=== PATIENT | male | born 1995 | race Caucasian/White ===

== ENCOUNTER 2022-04-03 22:10 | Emergency (ER) | payer OTHER, MEDICAID, SELFPAY ==
[2022-04-03 22:11] VITALS: BP 125/79; PULSE 61; RESP 16; TEMP 37.1; O2SAT 100; BMI 22.2
--- NOTE | 2022-04-03 23:06 | EDS_ITS ---
HPI HPI - GI History of Present Illness Chief Complaint: Abd Pain Narrative Narrative: 26-year-old male presenting with bilateral abdominal pain. He points to each flank. He states this has been ongoing for about 2 weeks. He reports he was initially constipated and gave himself an enema. He has been getting small amounts of stool periodically. He is not taking any stool softener or laxatives. Patient states he did have some nausea but is no longer experiencing this. He states he has been to 2 emergency room's over the last 2 weeks. He states that he initially had lab work-up the first time. Yesterday he reports having lab work and a CT scan of his abdomen which was normal. Patient has no history of inflammatory bowel disease. No history of abdominal surgeries. He reports no medical history. He states that his abdomen is always kind of sore because he rides dirt bikes. No urinary complaints. He feels as if there is fluid in his abdomen that moves when he sits up or lays down. PFSH PFSH Allergy/AdvReac Type Severity Reaction Status Date / Time No Known Allergies Allergy Verified 04/03/22 22:11 ROS ROS ED Constitutional Constitutional ED: Denies chills or fever(s) ENT ENT ED: Denies rhinorrhea or sore throat Cardiovascular Cardiovascular: Denies chest pain or palpitations Respiratory/Chest Respiratory/Chest: Denies cough or dyspnea Gastrointestinal Gastrointestinal: Reports abdominal pain, constipation and nausea Genitourinary Genitourinary ED: Denies dysuria or hematuria Musculoskeletal Musculoskeletal: Denies arthralgias or back pain Integumentary Denies abscess or Abrasions Neurologic Neurologic: Denies headache(s) or paresthesias Psychiatric Psychiatric: Denies anxiety or depression Endocrine Endocrinology: Denies polydipsia or polyphagia EXAM Physical Exam Const Vital Signs: 04/03/22 22:11 Temperature 98.8 F Temperature Source Temporal Pulse Rate 61 Respiratory Rate 16 Blood Pressure 125/79 H Blood Pressure Mean 94 Pulse Ox 100 Oxygen Delivery Method Room Air Positive well nourished General Appearance ED: NAD; Negative for pallor HEENT Reports moist mucous membranes normocephalic Eyes PERRL and EOMs intact bilaterally General Eye ED: Negative for pale conjunctiva or scleral icterus Resp normal respiratory effort and clear to auscultation bilaterally Auscultation: Negative for rales, rhonchi or wheezes Cardio regular rate and regular rhythm GI non-distended and no masses Palpation: soft; Negative for guarding, rigid, hepatomegaly, splenomegaly, mass or rebound tenderness present Back/Spine no CVA tenderness Extremity full ROM Neuro CN's II-XII intact bilaterally and moves all extremities Sensorium / Orientation: alert, oriented to person, oriented to place and oriented to time Motor Exam: strength 5/5 throughout Psych mental status grossly normal Skin no wounds General Skin Exam: Negative for jaundice or pallor MDM MDM MDM Narrative Medical decision making narrative: Patient presenting with pain for 2 weeks. He has had 2 ER evaluations prior to mine. His vital signs are normal. His abdominal exam is benign. I looked up his most recent visit yesterday in [facility] and I saw that he had a normal CT of the abdomen pelvis yesterday. The appendix was seen and was not abnormal. There is noes evidence of inflammatory bowel disease and no significant stool burden on the CT. His CBC, CMP, lipase were normal. His urinalysis was normal. I counseled him off all findings because the patient states he was not sure what they found. I do not believe he needs repeat blood work or imaging as he has had this pain for 2 weeks and has a normal evaluation yesterday and his physical exam is unremarkable. Patient was still concerned about his abdominal discomfort. I obtained an acute abdominal series which on my interpretation shows a nonspecific bowel gas pattern. There is no evidence of obstruction. No acute cardiopulmonary process. No free air. Given this I feel the patient is stable for discharge home. Since he has had ongoing GI complaints I will refer him to Dr. Bustos. Impression: 1. Abdominal pain Radiography Diagnostic Testing: Clinical Impression(s) from Imaging Studies Acute Abdomen Series 04/03/22 23:50 IMPRESSION: Normal x-ray examination of the chest, abdomen, and pelvis. Electronically Signed: Justo Wren MD at 0:04 EST Reading Location ID and State: [facility] / [place] Tel , Service support , Discharge Plan Triage Chief Complaint: Abd Pain ED Provider: Des Parada Dx/Rx/DC Orders Primary Care Provider: Care Physician,No Primary Referrals: NOT,DEFINED [Non-Staff] -
--- NOTE | 2022-04-03 23:50 | RAD_ITS ---
STUDY: X-RAY - ACUTE ABDOMINAL SERIES REASON FOR EXAM: Male, 26 years old. abdominal pain TECHNIQUE: Single view of the chest. Supine, 2 view(s) of the abdomen were obtained. COMPARISON: None. FINDINGS: The lungs are clear and expanded. Normal size heart. Normal mediastinum and torres. Normal visualized pulmonary arteries. Normal visualized aortic arch and descending thoracic aorta. There is a non-specific bowel gas pattern. The soft tissue structures of the abdomen and pelvis are unremarkable. Normal visualized osseous structures. RAD/Acute Abdomen Inc Chest IMPRESSION: Normal x-ray examination of the chest, abdomen, and pelvis. Electronically Signed: Justo Wren MD at 0:04 EST ,
== END 2022-04-04 00:22 | disposition home or self-care (01) ==
PROVIDERS: Emergency Provider Student in an Organized Health Care Education/Training Program; Visit Provider Student in an Organized Health Care Education/Training Program
DX: R10.9 Unspecified abdominal pain (principal)
CPT/HCPCS: 74022; 99282; A4216